=== PATIENT | female | born 1980 | race Caucasian/White ===

== ENCOUNTER 2016-12-29 22:16 | Emergency (ER) | payer MEDICAID ==
[2014-11-22 06:54] VITALS: BMI 46.7
[~2016-12-29 22:16] MED LIST: IBUPROFEN600 MG PO; MOTRIN800 MG PO; PERCOCET 5-3251 TAB PO; PERCOCET 5/3251 TA1 PO; PRENATAL COMPLE1 TAB PO; SYNTHROID100 MCG PO
== END 2016-12-29 23:40 | disposition home or self-care (01) ==
LOC: D.ER 22:16
DX: S93.402A Sprain of unspecified ligament of left ankle, initial encounter (principal); W19.XXXA Unspecified fall, initial encounter; Y93.89 Activity, other specified; Y92.89 Other specified places as the place of occurrence of the external cause; F17.200 Nicotine dependence, unspecified, uncomplicated

== ENCOUNTER 2017-01-18 07:15 | Day surgery (SDC) | payer MEDICAID ==
[2017-01-15 14:15] LABS: HEMATOCRIT 39.8 % (36.0-48.0); HEMOGLOBIN 12.8 g/dL (12-16); MCH 27.9 pg (26.0-34.0); MCHC 32.2 g/dL (31.0-37.0); MCV 86.7 fL (80.0-100.0); MEAN PLATELET VOLUME 11.8 fL (7.4-10.4); RBC 4.59 10x6/uL (4.00-5.40); WBC 6.8 10x3/uL (4.8-10.8)
[~2017-01-18] VITALS: Ht 172.7 cm; Wt 142.9 kg
[2017-01-18 11:07] VITALS: BP 103/69; Ht 172.7 cm; Wt 142.9 kg
[2017-01-18] MEDS ORDERED: HYDROCODONE-APA1 TAB PO (13:27)
--- NOTE | 2017-01-18 15:55 | NUR ---
ASSISTED PATIENT TO BEDSIDE COMMODE TO URINATE. URINATES LARGE AMOUNT. LEFT FOREARM PIV DC'D WITH TIP INTACT. PATIENT DRESSING IN PERSONAL CLOTHING
--- NOTE | 2017-01-18 16:20 | NUR ---
DISCHARGE INSTRUCTIONS REVIEWED WITH PATIENT AND GIVEN. DISCUSSED IN DETAIL WHAT TOUCH TOE WEIGHT-BEARING MEANS, THAT PATIENT MAY, WITH THE BOOT ON, TOUCH THE TOE DOWN ON THE FLOOR BUT NOT PUT ANY FURTHER WEIGHT ON IT THAN THAT UNTIL TOLD BY DR JONES THAT SHE MAY PUT MORE AND TO USE CRUTCHES. PATIENT STATES UNDERSTANDING. DISCHARGED HOME VIA WHEELCHAIR TO PRIVATE VEHICLE WITH SIGNIFICANT OTHER
--- NOTE | 2017-01-18 19:30 | NUR ---
1455 SERVED FULL LIQUID DIET. Reji REINA R.N.
--- NOTE | 2017-01-19 16:52 | OP ---
PATIENT NAME: NEMESIO CAZARES MEDICAL RECORD: [id number] :80 LOCATION:D.OPS ADMISSION DATE: SURGEON: JENNY JONES MD DATE OF OPERATION: 01/18/2017 PREOPERATIVE DIAGNOSIS: Painful broken retained hardware of the left ankle. POSTOPERATIVE DIAGNOSIS: Painful broken retained hardware of the left ankle. PROCEDURE: Removal of painful left hardware, as well as painful syndesmosis screw. SURGEON: Jenny Jones MD ANESTHESIA: General. INTRAOPERATIVE COMPLICATIONS: None. SUMMARY OF PATHOLOGIC FINDINGS: Quite a degree of difficulty was incurred using a syndesmosis screw out. At last it finally was removed along with the lateral plate and screws. OPERATIVE SUMMARY IN DETAIL: After obtaining the appropriate preoperative orthopedic surgery consents, as well as anesthetic consultation, evaluation and clearance, the patient was brought to the operating room and placed on the operating table in supine position. After general endotracheal anesthesia was administered, tourniquet was placed about the proximal aspect of left lower extremity. Left lower extremity was then prepped and draped in routine sterile fashion. The leg was elevated and exsanguinated, tourniquet inflated to 350 mmHg. Previously utilized incision was again incised down to the level of the plate. The plate was completely exposed. The serial and sequential screw removal was done followed by removal of the plate. The easy out system from [employer] was then used through the fibula into the tibia to remove the broken screw. This was removed. The wound was copiously irrigated. All done under fluoroscopy. A [id number] closure was achieved with #1 Vicryl followed by 2-0 Vicryl and skin key. Sterile dressings were applied. The patient was awakened and taken to recovery room in stable condition. All final needle and sponge counts were correct. TRANSINT:[id number] Voice Confirmation ID: [id number] DOCUMENT ID: [id number] JENNY JONES MD at 1652 CC: [id number] DICTATION DATE: 01/18/17 1329 RESPITE CARE PROVIDER: 01/18/172128 [facility] 01/18/17 [place] [address]
== END 2017-01-18 16:20 | disposition home or self-care (01) ==
LOC: D.OPS 07:15 → D.PAN 11:00 → D.OPS 11:15 → D.PAN 13:20 → D.OPS 16:20
PROVIDERS: Anesthesiology
DX: T84.117A Breakdown (mechanical) of internal fixation device of bone of left lower leg, initial encounter (principal); M25.572 Pain in left ankle and joints of left foot

== ENCOUNTER 2018-08-20 05:54 | Emergency (ER) | payer MEDICAID ==
[~2018-08-20] VITALS: Ht 172.7 cm; Wt 127.7 kg
[~2018-08-20 05:54] MED LIST changes: +HYDROCODONE-APA1 TAB PO
[2018-08-20 05:59] VITALS: Ht 172.7 cm; Wt 127.7 kg
[2018-08-20 06:13] LABS: BASOPHILS 0.1 % (0-2); EOSINOPHILS 1.4 % (0-7); HEMATOCRIT 38.8 % (36.0-48.0); HEMOGLOBIN 12.7 g/dL (12-16); IMMATURE GRANULOCYTES 0.2 % (0-5); LYMPHOCYTES 24.5 % (15-50); MCH 27.5 pg (26.0-34.0); MCHC 32.7 g/dL (31.0-37.0); MCV 84.2 fL (80.0-100.0); MEAN PLATELET VOLUME 11.8 fL (7.4-10.4); MONOCYTES 5.6 % (2-11); NEUTROPHILS 68.2 % (40-80); RBC 4.61 10x6/uL (4.00-5.40); WBC 11.2 10x3/uL (4.8-10.8)
[2018-08-20 06:16] LABS: PLATELET COUNT 114 10x3/uL (130-400)
[2018-08-20 06:31] LABS: ALBUMIN 2.9 g/dL (3.4-5.0); ALKALINE PHOSPHATASE 103 U/L (46-116); ALT (SGPT) 21 U/L (10-68); AMYLASE - SERUM 21 U/L (25-115); BILIRUBIN - TOTAL 0.25 mg/dL (0.2-1.3); CALC OSMOLALITY 280 mosm/kg (275-300); CALCIUM 8.7 mg/dL (8.5-10.1); CARBON DIOXIDE 24.1 mmol/L (21.0-32.0); CHLORIDE - SERUM 106 mmol/L (98-107); CREATININE - SERUM 0.8 mg/dL (0.6-1.3); GLUCOSE 116 mg/dL (74-106); LIPASE 79 U/L (73-393); POTASSIUM - SERUM 3.9 mmol/L (3.5-5.1); PROTEIN - SERUM 6.6 g/dL (6.4-8.2); SODIUM 142 mmol/L (136-145); UREA NITROGEN 5 mg/dL (7-18); eGFR NON AFRICAN AMERICAN 85 mL/min (90-120)
[2018-08-20 06:32] LABS: APPEARANCE HAZY (CLEAR); BILIRUBIN NEGATIVE (NEGATIVE); COLOR YELLOW (YELLOW); GLUCOSE NEGATIVE (NEGATIVE); KETONE NEGATIVE (NEGATIVE); NITRITE NEGATIVE (NEGATIVE); PROTEIN NEGATIVE (NEGATIVE); SPECIFIC GRAVITY 1.015 (1.005-1.020); UROBILINOGEN NORMAL (NORMAL)
[2018-08-20 06:35] LABS: BACTERIA MODERATE /hpf (NONE SEEN); EPITHELIAL CELLS 0-5 /hpf (0-5); RED CELLS - URINE NONE SEEN /hpf (0-5); WHITE CELLS - URINE 0-5 /hpf (0-5)
[2018-08-20 06:46] LABS: HCG SERUM NEGATIVE (NEGATIVE)
[2018-08-20] MEDS ORDERED: NORCO 5/325 TAB1 TAB PO (09:32)
[2018-08-20] MEDS ORDERED: LEVAQUIN750 MG PO (09:32)
[2018-08-20 10:04] VITALS: BP 116/74
== END 2018-08-20 10:04 | disposition home or self-care (01) ==
LOC: D.ER 05:54
PROVIDERS: Family Medicine
DX: J18.9 Pneumonia, unspecified organism (principal); R10.9 Unspecified abdominal pain; D72.829 Elevated white blood cell count, unspecified; E07.9 Disorder of thyroid, unspecified; F17.200 Nicotine dependence, unspecified, uncomplicated

== ENCOUNTER 2019-02-14 20:14 | Emergency (ER) | payer MEDICAID ==
[~2019-02-14] VITALS: Ht 172.7 cm; Wt 143.2 kg
[~2019-02-14 20:14] MED LIST changes: +LEVAQUIN750 MG PO; +NORCO 5/325 TAB1 TAB PO
[2019-02-14 20:19] VITALS: Ht 172.7 cm; Wt 143.2 kg
[2019-02-14] MEDS ORDERED: TORADOL10 MG PO (20:57)
[2019-02-14 22:18] VITALS: BP 124/77
== END 2019-02-14 22:18 | disposition home or self-care (01) ==
LOC: D.ER 20:14
DX: S99.912A Unspecified injury of left ankle, initial encounter (principal); W18.30XA Fall on same level, unspecified, initial encounter; Y93.89 Activity, other specified; Y92.89 Other specified places as the place of occurrence of the external cause

== ENCOUNTER 2020-05-28 17:09 | Emergency (ER) | payer OTHER ==
[~2020-05-28] VITALS: Ht 172.7 cm; Wt 143.2 kg
[~2020-05-28 17:09] MED LIST changes: +HYDROCODON-ACE1 EA10 PO; +TORADOL10 MG PO
[2020-05-28 17:15] VITALS: Ht 172.7 cm; Wt 143.2 kg
[2020-05-28] MEDS ORDERED: TIROSINT13 MCG (17:19)
[2020-05-28 19:41] VITALS: BP 142/84
[2020-05-28] MEDS ORDERED: DICLOFENAC SODI50 MG PO (19:49)
== END 2020-05-28 19:41 | disposition home or self-care (01) ==
LOC: D.ER 17:09
DX: S30.0XXA Contusion of lower back and pelvis, initial encounter (principal); S39.012A Strain of muscle, fascia and tendon of lower back, initial encounter; W19.XXXA Unspecified fall, initial encounter; Y93.9 Activity, unspecified; Y92.9 Unspecified place or not applicable

== ENCOUNTER 2020-07-15 13:56 | Emergency (ER) | payer OTHER ==
[~2020-07-15] VITALS: Ht 172.7 cm; Wt 145.5 kg
[~2020-07-15 13:56] MED LIST changes: +DICLOFENAC SODI50 MG PO; +TIROSINT13 MCG
[2020-07-15 14:08] VITALS: Ht 172.7 cm; Wt 145.5 kg
[2020-07-15] MEDS ORDERED: UNK BP MED (14:12)
[2020-07-15] MEDS ORDERED: [UNRECOGNIZED DRUG - REMARK] (14:13)
[2020-07-15] MEDS ORDERED: CLINDAMYCIN HC300 MG PO ×2 (14:26→14:45)
[2020-07-15 15:02] LABS: BASOPHILS 0.2 % (0-2); EOSINOPHILS 2.5 % (0-7); HEMATOCRIT 37.1 % (36.0-48.0); HEMOGLOBIN 11.7 g/dL (12-16); IMMATURE GRANULOCYTES 0.1 % (0-5); LYMPHOCYTES 25.2 % (15-50); MCH 26.8 pg (26.0-34.0); MCHC 31.5 g/dL (31.0-37.0); MCV 85.1 fL (80.0-100.0); MEAN PLATELET VOLUME 10.2 fL (7.4-10.4); MONOCYTES 7.3 % (2-11); NEUTROPHILS 64.7 % (40-80); RBC 4.36 10x6/uL (4.00-5.40); RDW 15.2 % (11.5-14.5); WBC 9.9 10x3/uL (4.8-10.8)
[2020-07-15 15:12] LABS: CALC OSMOLALITY 274 mosm/kg (275-300); CALCIUM 8.1 mg/dL (8.5-10.1); CARBON DIOXIDE 24.6 mmol/L (21.0-32.0); CHLORIDE - SERUM 104 mmol/L (98-107); CREATININE - SERUM 0.8 mg/dL (0.6-1.3); GLUCOSE 124 mg/dL (74-106); POTASSIUM - SERUM 3.5 mmol/L (3.5-5.1); SODIUM 138 mmol/L (136-145); UREA NITROGEN 7 mg/dL (7-18); eGFR NON AFRICAN AMERICAN 84 mL/min (90-120)
[2020-07-15 15:18] LABS: ALKALINE PHOSPHATASE 111 U/L (30-120); ALT (SGPT) 21 U/L (10-68); BILIRUBIN - TOTAL 0.65 mg/dL (0.2-1.3); PROTEIN - SERUM 6.5 g/dL (6.4-8.2)
[2020-07-15 15:51] LABS: PLATELET COUNT 287 10x3/uL (130-400)
[2020-07-15 19:58] VITALS: BP 140/85
== END 2020-07-15 15:20 | disposition home or self-care (01) ==
LOC: D.ER 13:56
PROVIDERS: Family Medicine
DX: L02.31 Cutaneous abscess of buttock (principal); I10 Essential (primary) hypertension; E07.9 Disorder of thyroid, unspecified; Z72.0 Tobacco use